=== PATIENT | male | born 1985 | race Caucasian/White ===

== ENCOUNTER → 2017-12-06 | Outpatient (CLI) | payer BC, OTHER ==
[2017-12-07 12:35] LABS: HIV 1&2 SCREEN CENTAUR NEGATIVE (NEGATIVE)
[2017-12-08 08:06] LABS: HSV TYPE II IgG SPECIFIC <0.91 index (0.00-0.90)
== END ==
LOC: M WUC 09:03
DX: Z11.3 Encounter for screening for infections with a predominantly sexual mode of transmission (principal)
CPT/HCPCS: 86695

== ENCOUNTER → 2017-12-06 | Outpatient (REF) | payer BC ==
[2017-12-06 14:53] LABS: CHLAMYDIA DNA AMPLIFICATION NEGATIVE (NEGATIVE); GC DNA AMPLIFICATION NEGATIVE (NEGATIVE)
== END ==
LOC: M LAB REF 11:36
DX: Z11.3 Encounter for screening for infections with a predominantly sexual mode of transmission (principal)

== ENCOUNTER → 2022-08-04 | Outpatient (CLI) | payer OTHER ==
[~2022-08-04] MED LIST: OXYC-517 PO
== END ==
LOC: M RAD 16:16
PROVIDERS: ATTEND Physician Assistant
DX: S52.592A Other fractures of lower end of left radius, initial encounter for closed fracture (principal); W18.30XA Fall on same level, unspecified, initial encounter; Y92.009 Unspecified place in unspecified non-institutional (private) residence as the place of occurrence of the external cause

== ENCOUNTER 2022-08-09 09:34 | Day surgery (SDC) | payer OTHER ==
[~2022-08-09] VITALS: Ht 172.7 cm; Wt 98.8 kg
[2022-08-09] MEDS ORDERED: ceFAZolin SOD 2 GM in IV 1 EA IV ONE (11:00)
[2022-08-09] MEDS ORDERED: BUPIVACAINE HCL 0.5% 30ML VIAL As Ordered ONE (16:43)
[2022-08-09] MEDS ORDERED: DESFLURANE 240 ML INHALANT As Ordered ONE ×2 (16:44→17:41)
[2022-08-09] MEDS ORDERED: LIDOCAINE 2% 100MG/5ML SDV (FOR ANES.) As Ordered ONE (16:44)
[2022-08-09] MEDS ORDERED: KETOROLAC 60MG 2ML VIAL As Ordered ONE (16:44)
[2022-08-09] MEDS ORDERED: ONDANSETRON 4MG 2ML VIAL As Ordered ONE (16:44)
[2022-08-09] MEDS ORDERED: fentaNYL 100 MCG/2 ML INJECTION As Ordered ONE ×2 (16:44→16:53)
[2022-08-09] MEDS ORDERED: METOCLOPRAMIDE INJ 10MG/2ML VIAL As Ordered ONE (16:44)
[2022-08-09] MEDS ORDERED: propofoL 200 MG/20 ML VIAL As Ordered ONE ×2 (16:44→17:54)
[2022-08-09] MEDS ORDERED: MIDAZOLAM INJ 2MG/2ML VIAL As Ordered ONE (16:44)
[2022-08-09] MEDS ORDERED: SEVOFLURANE INHAL SOLN 250 ML BTL As Ordered ONE (16:45)
[2022-08-09] MEDS ORDERED: ONDANSETRON 4MG 2ML VIAL IV PRN (17:55)
[2022-08-09] MEDS ORDERED: HYDROMORPHONE HCL 0.5 MG/ 0.5 ML SYRINGE IV PRN (17:55)
[2022-08-09] MEDS ORDERED: LR 1,000 ML IV SCH (17:55)
[2022-08-09] MEDS: oxyCODONE 5MG TAB PO PRN ×2 (18:07→18:44)
[2022-08-09] MEDS: fentaNYL 100 MCG/2 ML INJECTION IV PRN ×4 (18:08→18:28)
[2022-08-09] MEDS ORDERED: OXYC-517 PO ×2 (18:18→19:47)
[2022-08-09] MEDS: LABETALOL 100MG/20ML VIAL IV PRN ×2 (18:51→19:00)
[2022-08-09 19:45] VITALS: BP 158/108
== END 2022-08-09 20:10 | disposition home or self-care (01) ==
LOC: M SDC 09:34
PROVIDERS: ATTEND Orthopaedic Surgery
DX: S52.572A Other intraarticular fracture of lower end of left radius, initial encounter for closed fracture (principal); X58.XXXA Exposure to other specified factors, initial encounter; Y92.89 Other specified places as the place of occurrence of the external cause; Z88.0 Allergy status to penicillin
CPT/HCPCS: 25608; 76000; 87635; C1713; J0690; J1100; J1170; J2250; J2405; J2765; J3010

== ENCOUNTER → 2022-08-15 | Outpatient (CLI) | payer OTHER | LOC: M SOG 08:57 | PROVIDERS: ATTEND Orthopaedic Surgery | DX: S52.572A Other intraarticular fracture of lower end of left radius, initial encounter for closed fracture (principal); S52.615A Nondisplaced fracture of left ulna styloid process, initial encounter for closed fracture; X58.XXXA Exposure to other specified factors, initial encounter; Y92.89 Other specified places as the place of occurrence of the external cause ==

== ENCOUNTER → 2022-09-12 | Outpatient (CLI) | payer OTHER | LOC: M SOG 10:36 | PROVIDERS: ATTEND Orthopaedic Surgery | DX: S52.572A Other intraarticular fracture of lower end of left radius, initial encounter for closed fracture (principal); W18.30XA Fall on same level, unspecified, initial encounter; Y92.009 Unspecified place in unspecified non-institutional (private) residence as the place of occurrence of the external cause ==

== ENCOUNTER → 2022-11-16 | Outpatient (CLI) | payer OTHER | LOC: M SOG 08:24 | PROVIDERS: ATTEND Orthopaedic Surgery | DX: M25.632 Stiffness of left wrist, not elsewhere classified (principal) ==

== ENCOUNTER 2022-12-29 02:24 | Emergency (ER) | payer OTHER ==
[~2022-12-29] VITALS: Ht 172.7 cm; Wt 98.5 kg
[2022-12-29] MEDS ORDERED: MORPHINE 2 MG/ML 1ML VIAL IV ONE (02:55)
[2022-12-29] MEDS ORDERED: CLINDAMYCIN 900 MG in IV 1 EA IV ONE (03:30)
[2022-12-29] MEDS ORDERED: LIDOCAINE 2% MDV 20ML VIAL SC ONE (03:35)
[2022-12-29] MEDS: NS 1,000 ML IV SCH ×2 (04:04→06:18)
[2022-12-29] MEDS ORDERED: BACITRACIN OINTMENT 30GM TUBE TOP PRN (06:00)
[2022-12-29] MEDS ORDERED: NEOSPORIN OINT 0.9 GM PKT TOP ONE (06:05)
[2022-12-29] MEDS ORDERED: TRAM50TA2 PO (06:09)
[2022-12-29] MEDS ORDERED: DOXY-443 PO (06:09)
[2022-12-29 06:10] VITALS: BP 125/78; TEMP 98.4; O2SAT 98
[2022-12-29] MEDS ORDERED: DOXYCYCLINE HYCLATE 100MG TABLET PO ONE (06:15)
== END 2022-12-29 06:36 | disposition home or self-care (01) ==
LOC: EDBD 02:24 → M ED 02:24
DX: S62.630B Displaced fracture of distal phalanx of right index finger, initial encounter for open fracture (principal); W23.1XXA Caught, crushed, jammed, or pinched between stationary objects, initial encounter; Y92.009 Unspecified place in unspecified non-institutional (private) residence as the place of occurrence of the external cause; Y93.89 Activity, other specified; Y99.8 Other external cause status; Z88.0 Allergy status to penicillin; Z79.899 Other long term (current) drug therapy
CPT/HCPCS: 73140; 96365; 96375; 99284; S0077